=== PATIENT | female | born 1970 | race Caucasian/White ===

== ENCOUNTER 2021-04-09 11:43 | Day surgery (SDC) | payer BC ==
[~2021-04-09] VITALS: Ht 152.4 cm; Wt 71.3 kg
[~2021-04-09 11:43] MED LIST: THYR60
== END 2021-04-09 14:28 | disposition home or self-care (01) ==
LOC: ORSCSDS 11:43
PROVIDERS: Internal Medicine Gastroenterology
PROC: 0DJD8ZZ Inspection of Lower Intestinal Tract, Via Natural or Artificial Opening Endoscopic (ICD-10-PCS; principal; 2021-04-09 13:00)
DX: Z12.11 Encounter for screening for malignant neoplasm of colon (principal); K64.8 Other hemorrhoids; E03.9 Hypothyroidism, unspecified; Z79.899 Other long term (current) drug therapy
CPT/HCPCS: J2704; J7120

== ENCOUNTER → 2023-03-31 | Outpatient (CLI) | payer BC | LOC: LAB SHORT 07:49 → PLD 07:49 | DX: D48.5 Neoplasm of uncertain behavior of skin (principal) | CPT/HCPCS: 88305 ==

== ENCOUNTER → 2025-09-20 | Outpatient (CLI) | payer BC | END | disposition home or self-care (01) | LOC: LAB SHORT 09:15 → LAB 09:15 | DX: N39.0 Urinary tract infection, site not specified (principal) | CPT/HCPCS: 87077; 87086; 87147; 87186 ==